=== PATIENT | male | born 1960 | race Caucasian/White ===

== ENCOUNTER 2018-12-21 17:00 | Emergency (ER) | payer SELFPAY ==
--- NOTE | 2018-12-21 17:07 | UC ---
Laceration HPI - HPI Summary HPI Summary: 58 yo male presents with left thumb laceration. 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 He bandaged the area and came to . He is unsure the date of his last tetanus, but prefers to call his PCP tomorrow to ask about this. He is right handed - History Of Current Complaint Stated Complaint: FINGER LACERATION Time Seen by Provider: 12/21/18 17:07 Hx Obtained From: Patient Laceration Location: Finger Mechanism Of Injury: Sharp Trauma Onset/Duration: Sudden Onset Severity: Mild Pain Intensity: 3 Pain Scale Used: 0-10 Numeric - Allergies/Home Medications Allergies/Adverse Reactions: Allergies Allergy/AdvReac Type Severity Reaction Status Date / Time No Known Allergies Allergy Verified 12/21/18 17:13 PMH/Surg Hx/FS Hx/Imm Hx - Additional Past Medical History Additional PMH: None - Social History Occupation: Employed Full-time Lives: With Family Alcohol Use: Occasionally Substance Use Type: None Smoking Status (MU): Never Smoked Tobacco Review of Systems All Other Systems Reviewed And Are Negative: Yes Constitutional: Positive: Negative Skin: Positive: Other - Left thumb laceration Respiratory: Positive: Negative Cardiovascular: Positive: Negative Neurovascular: Positive: Negative Musculoskeletal: Positive: Negative Neurological: Positive: Negative Psychological: Positive: Negative Physical Exam - Summary Physical Exam Summary: GENERAL: NAD. WDWN. No pain distress. SKIN: LEFT THUMB: Partial avulsion of finger pad from the distal aspect to just above the IP joint with the inferior portion of the laceration connected to the skin. Distal aspect of avulsed skin with dusky appearance. No tendon involvement appreciated. Actively bleeding. No bone appreciated. CHEST: No accessory muscle use. Breathing comfortably and in no distress. CV: Pulses intact. Cap refill <2seconds MSK: FROM at left thumb NEURO: Alert. PSYCH: Age appropriate behavior. Triage Information Reviewed: Yes Vital Signs: Vital Signs: Temp Pulse Resp BP Pulse Ox 97.9 F 75 16 176/90 96 12/21/18 17:09 12/21/18 17:09 12/21/18 17:09 12/21/18 17:09 12/21/18 17:09 Vital Signs Reviewed: Yes Laceration Repair - Laceration Repair 1 Description: Irregular Laceration Size After Repair: Length (cm) - 3.0 Modified For Repair: No Anesthesia Used: 2.0% Lido Irrigation With Pressure Irrigation Device: Yes Closure Material: Sutures - #7 Closure Method: Single Layer Suture Of: Skin Suture Type: Prolene - 5-0 Laceration Course/Dx - Course/Dx Course Of Treatment: The procedure was explained to the pt and all questions were answered. A time out was performed, witnessed, and signed. The area was irrigated with 250mL sterile saline. 2mL of 2% lidocaine without epi was administered and good anesthetization was achieved. In the usual sterile fashion, SEVEN 5-0 prolene interrupted sutures were placed and the avulsed tissue was approximated back to it's original position. The tissue began to regain pink color. The wound was bandaged with xerform and telfa. Pt tolerated procedure well. Will place him on antibiotics and have him f/u with his PCP regarding his tetanus - Diagnosis Provider Diagnosis: Laceration of left thumb Discharge - Sign-Out/Discharge Documenting (check all that apply): Patient Departure All imaging exams completed and their final reports reviewed: No Studies - Discharge Plan Condition: Stable Disposition: HOME Prescriptions: Cephalexin CAP* [Keflex CAP*] 500 mg PO TID #21 cap Patient Education Materials: Care For Your Stitches (DC), Laceration (ED) Referrals: No Primary Care Phys,NOPCP [Primary Care Provider] - Additional Instructions: If you develop a fever, shortness of breath, chest pain, new or worsening symptoms - please call your PCP or go to the ED. Your blood pressure was high at todays visit. Please see your primary provider within 4 weeks for recheck and re-evaluation. 1) Please keep the area bandaged, clean, dry, and intact for the next 24- 48hours. 2) If you develop a fever, colored or thick discharge, increased pain or swelling - please call your PCP or go to the ED. 3) Please return in 10 days to have your SEVEN sutures removed. 4) Keep the yellow gauze strip in place for at least 3 days and the wound covered at all times until your stitches come out - Billing Disposition and Condition Condition: STABLE Disposition: Home - Attestation Statements Provider Attestation: Pt not examined by me. I was available for consult.
[2018-12-21 17:13] VITALS: BP 176/90
[2018-12-21] MEDS ORDERED: Lidocaine 2% PF * 5 ML VIAL INJ ONE (17:17)
[2018-12-21] MEDS ORDERED: Tetan/Diph/Pertus SYR(Tdap)* 0.5 ML SYR(BOOSTRIX) use SYR IM ONE (17:21)
== END 2018-12-21 18:31 | disposition home or self-care (01) ==
LOC: UCEAST 17:00
DX: S61.012A Laceration without foreign body of left thumb without damage to nail, initial encounter (principal); W26.8XXA Contact with other sharp object(s), not elsewhere classified, initial encounter; Y92.9 Unspecified place or not applicable
CPT/HCPCS: 12002; 90715; 99202; G0463

== ENCOUNTER 2018-12-22 10:55 | Emergency (ER) | payer SELFPAY ==
--- NOTE | 2018-12-22 11:00 | UC ---
Skin Complaint HPI - HPI Summary HPI Summary: 58 yo male presents with concerns regarding his left thumb laceration. I saw the pt yesterday and sutured a significant partial avulsion laceration to his left thumb. The wound was bandaged with xeroform, telfa, and tubegauze. Pt is here because this morning he noticed the outer dressing had some blood on it and is concerned about this. He has little to no pain. No fevers. - History of Current Complaint Time Seen by Provider: 12/22/18 10:59 Stated Complaint: LT FINGER INJURY Hx Obtained From: Patient Onset Severity: Mild Current Severity: Mild Pain Intensity: 1 Pain Scale Used: 0-10 Numeric - Allergy/Home Medications Allergies/Adverse Reactions: Allergies Allergy/AdvReac Type Severity Reaction Status Date / Time No Known Allergies Allergy Verified 12/22/18 11:03 PMH/Surg Hx/FS Hx/Imm Hx - Additional Past Medical History Additional PMH: None - Surgical History Surgical History: None - Social History Occupation: Employed Full-time Lives: With Family Alcohol Use: Occasionally Alcohol Amount: 2 per day Substance Use Type: None Smoking Status (MU): Never Smoked Tobacco - Immunization History Most Recent Tetanus Shot: unknown Review of Systems All Other Systems Reviewed And Are Negative: Yes Constitutional: Positive: Negative Skin: Positive: Other - Left thumb laceration Respiratory: Positive: Negative Cardiovascular: Positive: Negative Neurovascular: Positive: Negative Musculoskeletal: Positive: Negative Neurological: Positive: Negative Psychological: Positive: Negative Physical Exam - Summary Physical Exam Summary: GENERAL: NAD. WDWN. No pain distress. SKIN: LEFT THUMB: Laceration well approximated and seven sutures in place. Skin is pink in color. Dried blood under fingernail without any other active bleeding , drainage, or edema. CHEST: No accessory muscle use. Breathing comfortably and in no distress. CV: Pulses intact. Cap refill <2seconds NEURO: Alert. PSYCH: Age appropriate behavior. Triage Information Reviewed: Yes Vital Signs: Vital Signs: Temp Pulse Resp BP Pulse Ox 98.1 F 80 20 149/93 96 12/22/18 11:00 12/22/18 11:00 12/22/18 11:00 12/22/18 11:00 12/22/18 11:00 Vital Signs Reviewed: Yes Course/Dx - Course Course Of Treatment: The bandaged was removed and underlying laceration examined - appears well and is without sign of infection or bleeding. The wound was dressed with xeroform, telfa, and tubegauze and pt advised to f/u as previously instructed. - Diagnoses Provider Diagnosis: Laceration of left thumb Discharge - Sign-Out/Discharge Documenting (check all that apply): Patient Departure All imaging exams completed and their final reports reviewed: No Studies - Discharge Plan Condition: Stable Disposition: HOME Referrals: No Primary Care Phys,NOPCP [Primary Care Provider] - Additional Instructions: 1) Please keep the area bandaged, clean, dry, and intact for the next 24- 48hours. 2) If you develop a fever, colored or thick discharge, increased pain or swelling - please call your PCP or go to the ED. 3) Please return as scheduled to have your stitches removed - Billing Disposition and Condition Condition: STABLE Disposition: Home
[2018-12-22 11:03] VITALS: BP 149/93
== END 2018-12-22 11:13 | disposition home or self-care (01) ==
LOC: UCEAST 10:55
DX: S61.012D Laceration without foreign body of left thumb without damage to nail, subsequent encounter (principal); X58.XXXD Exposure to other specified factors, subsequent encounter
CPT/HCPCS: 99212; G0463

== ENCOUNTER 2018-12-31 15:20 | Emergency (ER) | payer SELFPAY ==
[2018-12-31 15:29] VITALS: BP 143/100
--- NOTE | 2018-12-31 19:52 | UC ---
HPI Wound/Suture Re-check - HPI Summary HPI Summary: 58 year old male with laceration to thumb L on 12/21, 7 sutures placed. REturns today for removal, no complications, no redness, drainage noted, minimal pain. - History Of Current Complaint Chief Complaint: UCUpperExtremity Stated Complaint: SUTURE REMOVAL Time Seen by Provider: 12/31/18 15:46 Hx Obtained From: Patient Onset/Duration: Sudden Onset, Still Present Pain Intensity: 0 Pain Scale Used: 0-10 Numeric - Allergies/Home Medications Allergies/Adverse Reactions: Allergies Allergy/AdvReac Type Severity Reaction Status Date / Time No Known Allergies Allergy Verified 12/31/18 15:29 PMH/Surg Hx/FS Hx/Imm Hx Previously Healthy: Yes - Surgical History Surgical History: None - Social History Alcohol Use: Daily Alcohol Amount: 2 per day Substance Use Type: None Smoking Status (MU): Never Smoked Tobacco - Immunization History Most Recent Tetanus Shot: unknown Review of Systems All Other Systems Reviewed And Are Negative: Yes Skin: Positive: Other - laceration L thumb Musculoskeletal: Positive: Negative Is Patient Immunocompromised?: No Physical Exam Triage Information Reviewed: Yes Appearance: Well-Appearing, No Pain Distress, Well-Nourished Vital Signs: Initial Vital Signs Temp 98.6 F 12/31/18 15:26 Pulse 83 12/31/18 15:26 Resp 12 12/31/18 15:26 BP 143/100 12/31/18 15:26 Pulse Ox 99 12/31/18 15:26 Vital Signs Reviewed: Yes Eyes: Positive: Conjunctiva Clear Musculoskeletal Exam: Normal Musculoskeletal: Positive: Strength Intact - L thumb full ROM, strength Neurological Exam: Normal Psychological Exam: Normal Skin Exam: Normal Skin: Positive: Other - 7 sutures in L thumb, incision well healed without drainage, redness, or swelling noted. non-tender to palpation Course/Dx - Course Course Of Treatment: 7 sutures removed after area cleaned with alcohol swabs, no complications. dressed with steri strips. f/u as needed. Patient BP has been elevated past 2 visits, was educated to f/u with PCP for evaluation - Diagnosis Provider Diagnosis: Visit for suture removal Discharge - Sign-Out/Discharge Documenting (check all that apply): Patient Departure All imaging exams completed and their final reports reviewed: No Studies - Discharge Plan Condition: Good Disposition: HOME Patient Education Materials: Stitches Removal (ED) Forms: *Work Release Referrals: No Primary Care Phys,NOPCP [Primary Care Provider] - Additional Instructions: - Do not submerge wound into water x 24-48 hours - keep steri strips on, will fall off on own. Ok to wash, etc. - Return with increased pain, redness, drainage - Billing Disposition and Condition Condition: GOOD Disposition: Home - Attestation Statements Provider Attestation: Patient not seen by me. I was available for consult.
== END 2018-12-31 16:40 | disposition home or self-care (01) ==
LOC: UCEAST 15:20
DX: Z48.02 Encounter for removal of sutures (principal)
CPT/HCPCS: 99211; G0463

== ENCOUNTER 2022-09-04 18:06 | Observation (INO) ==
[2022-09-04 18:29] LABS: ABS Eosinophils 0.1 10^3/ul (0-0.6); ABS Lymphocytes 0.7 10^3/ul (1.0-4.8); ABS Monocytes 0.6 10^3/ul (0-0.8); ABS Neutrophils 4.5 10^3/ul (1.5-7.7); Eosinophil % 1.2 %; Hematocrit 44 % (42-52); Lymphocyte % 12.5 %; Mean Corpuscular HGB Conc 34 g/dL (31-36); Mean Corpuscular Hemoglobin 33 pg (27-31); Mean Corpuscular Volume 95 fL (80-94); Mean Platelet Volume 7.2 fL (7.4-10.4); Platelet Count 201 10^3/uL (150-450); Red Cell Distribution Width 13 % (10-15)
[2022-09-04 18:35] LABS: INR 1.18 (0.88-1.18)
[2022-09-04 19:13] LABS: Albumin 4.2 g/dL (3.2-5.2); Albumin/Globulin Ratio 1.8 (1-3); Calcium 9.1 mg/dL (8.6-10.3); Globulin 2.4 g/dL (2-4); Total Bilirubin 0.8 mg/dL (0.2-1.0); Total Protein 6.6 g/dL (6.4-8.9); eGFR CKD-EPI 100.8 (>60)
[2022-09-04 19:58] LABS: High Sensitivity Troponin 1 Hr 98 pg/mL (<20)
[2022-09-05] MEDS ORDERED: Ondansetron 4 mg VIAL 2 MG/ML 2 ml VIAL IV PRN (00:51)
[2022-09-05] MEDS ORDERED: NS 0.9% 1000 ml BAG 1,000 ML IV SCH (01:00)
[2022-09-05 06:21] LABS: ABS Eosinophils 0.1 10^3/ul (0-0.6); ABS Lymphocytes 0.9 10^3/ul (1.0-4.8); ABS Monocytes 0.6 10^3/ul (0-0.8); ABS Neutrophils 4.2 10^3/ul (1.5-7.7); Eosinophil % 2.4 %; Hematocrit 42 % (42-52); Hemoglobin 14.5 g/dL (14.0-18.0); Lymphocyte % 15.9 %; Mean Corpuscular HGB Conc 34 g/dL (31-36); Mean Corpuscular Hemoglobin 32 pg (27-31); Mean Corpuscular Volume 95 fL (80-94); Mean Platelet Volume 7.6 fL (7.4-10.4); Platelet Count 190 10^3/uL (150-450); Red Blood Count 4.46 10^6 /uL (4.18-5.48); Red Cell Distribution Width 13 % (10-15); White Blood Count 5.8 10^3/uL (3.5-10.8)
[2022-09-05 06:29] LABS: Calcium 8.9 mg/dL (8.6-10.3); Potassium 4.1 mmol/L (3.5-5.0)
[2022-09-05 06:34] LABS: eGFR CKD-EPI 100.1 (>60)
[2022-09-05 09:00] VITALS: BP 110/57
== END 2022-09-05 11:00 | disposition home or self-care (01) ==
LOC: EDHOLD 18:06 → ED 18:06 → SUATTDRO 09-05 00:51 → MEDTELE 09-05 03:57
PROVIDERS: ADMIT Internal Medicine; ATTEND Student in an Organized Health Care Education/Training Program